=== PATIENT | male | born 1975 | race Caucasian/White ===

== ENCOUNTER 2017-09-19 23:03 | Observation (INO) ==
[2017-09-20] MEDS ORDERED: Ketorolac 30 MG/ML VIAL IVP ONE (00:25)
[2017-09-20] MEDS ORDERED: 0.9 % Sodium Chloride 1,000 ML IVC ONE ×2 (00:25→02:01)
[2017-09-20] MEDS ORDERED: *HR* FentaNYL (PF) 100 MCG/2 ML VIAL IVP ONE ×2 (00:25→02:01)
[2017-09-20 00:52] LABS: Basophils % 0.4 %; Eosinophils # 0.4 K/mcL (0.0-0.6); Eosinophils % 3.6 %; Hematocrit 39.4 % (37.5-50.1); Hemoglobin 13.8 g/dL (12.9-16.9); Immature Granulocytes % 0.5 % (0-4); Lymphocytes % 27.6 %; Mean Corpuscular Hemoglobin 30.5 pg (28.0-33.3); Mean Corpuscular Volume 87.2 fL (83.0-100.0); Mean Platelet Volume 9.2 fL (9.4-12.4); Monocytes # 1.1 K/mcL (0.0-1.3); Monocytes % 9.8 %; Neutrophils # 6.4 K/mcL (1.6-8.9); Platelet Count 273 K/mcL (140-400); Red Blood Count 4.52 M/mcL (4.19-5.50); Red Cell Distribution Width 13.8 % (11.5-14.5); Segmented Neutrophils % 58.1 %
[2017-09-20 01:11] LABS: BUN/Creatinine Ratio 24 (6-26); Blood Urea Nitrogen 35 mg/dL (6-20); Calcium 9.6 mg/dL (8.6-10.3); Carbon Dioxide 19 mEq/L (23-29); Chloride 109 mEq/L (98-107); Creatine Kinase 1414 Units/L (30-223); Glucose 133 mg/dL (70-105); Osmolality,Calculated 302 (280-300); Potassium 3.8 mEq/L (3.5-5.1); Sodium 141 mEq/L (136-145); eGFR For African Americans > 60 (> 60); eGFR For Non-African Americans 53 (> 60)
[2017-09-20 02:03] LABS: Bilirubin,Urine Negative (Negative); Blood,Urine Negative (Negative); Clarity,Urine Clear (Clear); Color,Urine Yellow (Yellow); Glucose,Urine (UA) Normal (Normal); Ketones,Urine Negative (Negative); Leukocyte Esterase,Urine Negative (Negative); Nitrite,Urine Negative (Negative); Protein,Urine Trace mg/dL (Neg-Trace); Specific Gravity,Urine > 1.030 (1.010-1.025); Urobilinogen,Urine Normal (Normal)
[2017-09-20 02:06] LABS: Squamous Epithelial Cell,Urine Many per lpf (None-Few); WBC,Urine 15-30 per hpf (0-3)
[2017-09-20 02:18] LABS: Bacteria,Urine Few per hpf (None-Few); Hyaline Casts,Urine Moderate per lpf (None-Few); Mucus,Urine Moderate (Few)
[2017-09-20 02:37] LABS: Amphetamine Screen,Urine Positive ng/mL (Cutoff=1000); Barbiturate Screen,Urine Negative ng/mL (Cutoff=200); Benzodiazepines Screen,Urine Negative ng/mL (Cutoff=200); Cannabinoid Screen,Urine Positive ng/mL (Cutoff = 50); Cocaine Screen,Urine Negative ng/mL (Cutoff= 300); Opiate Screen,Urine Positive ng/mL (Cutoff=300); Phencyclidine Screen,Urine Negative ng/mL (Cutoff=25)
--- NOTE | 2017-09-20 03:16 | Emergency Department Note ---
Disposition Clinical Impression: Left leg pain, Polysubstance abuse Rhabdomyolysis Qualifiers: Rhabdomyolysis type: non-traumatic Qualified Code(s): M62.82 - Rhabdomyolysis Disposition: Admitted As Inpatient Condition: Fair Referrals: NONE,PCP [Primary Care Provider] - Forms: ED Satisfaction Letter Time of Disposition: 03:16 Extremity Problem HPI - General Chief complaint: ED Extremity Problem,Nontraumatic Stated complaint: Left leg pain Time Seen by Provider: 09/19/17 23:30 Source: patient Mode of arrival: private vehicle Limitations: no limitations Nursing Notes Reviewed: Yes Vital Signs Reviewed: Yes - History of Present Illness Pt Subjective Complaint: extremity pain Onset (ago): week(s) (About 4 weeks) Consistency: constant Injury Location: left, lower extremity Pain Scale: 7 Quality: aching Radiation: proximal Improves with: other (Slight improvement with sitting upright and flexing left leg at the hip.) Worsens with: range of motion, walking Associated symptoms: Reports: denies other symptoms. Denies: fever Context: other (Patient states that he was in [facility] a month ago when he laid on the concrete floor for a while and that is when his leg started bothering him. He just got a couple of days ago so they following up at [facility] for leg discomfort and they were told to come here to the emergency department for further evaluation. That was this afternoon. The show up around midnight) - Related Data Home Medications Medication Instructions Recorded Confirmed Lisinopril 10 mg PO DAILY 04/28/15 05/11/15 Previous Rx's Medication Instructions Recorded Clindamycin HCl [Cleocin HCl] 300 mg PO QID #40 cap 05/11/15 Oxycodone HCl/Acetaminophen 1 each PO Q4H #16 tablet 05/11/15 [Percocet 5-325 mg Tablet] Cyclobenzaprine [Flexeril] 10 mg PO TID PRN #9 tablet 08/14/15 predniSONE [Prednisone] 20 mg PO BID #8 tablet 08/14/15 HYDROcodone/Acet 5/325 mg [[place] 1 tab PO Q6H PRN #5 tab 01/12/17 5-325 mg] Ibuprofen [Motrin] 600 mg PO Q8HR PRN #20 tab 09/10/17 Allergies Allergy/AdvReac Type Severity Reaction Status Date / Time No Known Allergies Allergy Verified 04/11/15 10:19 All systems ED: reviewed and negative except as stated. Constitutional: Denies: fever, chills ENT ED: Denies: ear pain, throat pain, congestion Cardiovascular: Denies: chest pain, palpitations Respiratory: Denies: cough, dyspnea Gastrointestinal: Denies: abdominal pain, nausea, vomiting Genitourinary: Denies: urgency, dysuria, frequency Musculoskeletal: Reports: back pain (The patient has chronic back pain and is no worse than usual) Integumentary: Denies: rash Neurological: Denies: numbness Past Medical History - Past Medical History Attestation: Yes The following information was validated with the patient. Source: patient, nursing notes reviewed Medical history: Reports: hypertension Surgical history: Reports: other (Laminectomy) Psychiatric history: Reports: no psych history - Social History Smoking Status: Current every day smoker Smokeless Tobacco Status: No Alcohol use: Reports: rarely Drug use: Reports: none Physical Exam - General Limitations: no limitations General appearance: alert, other (Patient struggling to find a comfortable position. He is pulling his left leg up towards his chest while sitting up.) - Head Head exam: atraumatic, normocephalic, normal inspection - Eye Eye exam: Present: normal appearance, PERRL, EOMI. Absent: scleral icterus, conjunctival injection - ENT ENT exam: normal exam, normal oropharynx, mucous membranes moist, normal external ear exam - Neck Neck exam: Present: normal inspection, full ROM - Chest Chest inspection: Present: normal inspection, symmetric chest wall rise. Absent : tenderness - Respiratory Respiratory exam: Present: normal lung sounds bilaterally. Absent: respiratory distress, wheezes - Cardiovascular Cardiovascular exam: Present: regular rate, normal rhythm, normal heart sounds - Abdominal Exam Abdominal exam: Present: soft, Non-Tender, normal bowel sounds - Extremities Exam Extremities exam: Present: normal inspection, other (I did not find any area of tenderness on the leg. There is no pain on extension of any of the muscle groups of the upper or lower leg. Distal neurologic and vascular examination to the left lower extremity is normal. No rash was seen.) - Back Exam Back exam: Present: normal inspection. Absent: tenderness - Neurological Exam Neurological exam: Present: alert, oriented X3. Absent: motor sensory deficit - Psychiatric Psychiatric exam: Present: normal affect, normal mood - Skin Skin exam: Present: warm, dry. Absent: rash Course Course Narrative: Patient presents with pain to the leg. He weighs acting to me sounds like its more of a sciatica or neurologic cause of pain. I am not finding indications that its muscular or bony. Arterial vascular examination unremarkable. Patient has had prior back problems and previous back surgery. There is no clinical indications of deep vein thrombosis. Patient does have history of substance abuse and that does make me concerned for infection of the spine that could be leading to sciatica. Patient could not hold still for CT scan of the lumbar spine. I think he would benefit from MRI of this lumbar spine. Lab work did show an elevation of CPK of 1500 which is concerning for rhabdomyolysis. His urine dressing is also positive for amphetamines. This makes me wonder if the whole issue is not related to the substances. At this point he treatment the hospital because we have treated the rhabdo my lysis and need to make sure there is no more significant life-threatening issue such as a spine compression issue. However at this point his neurologic examination shows no deficits whatsoever. I did speak to the hospitalist and he is accepted patient for admission to the hospital. Patient's discomfort has improved after a couple doses of fentanyl. Vital Signs Temperature 98.2 F 09/19/17 23:16 Pulse Rate 110 09/19/17 23:16 Respiratory Rate 20 09/19/17 23:16 Blood Pressure 157/117 09/19/17 23:16 O2 Sat by Pulse Oximetry 96 09/19/17 23:16 Temperature 98.2 F 09/19/17 23:37 Pulse Rate 83 09/20/17 03:04 Respiratory Rate 20 09/20/17 03:04 Blood Pressure 138/109 09/20/17 03:04 O2 Sat by Pulse Oximetry 97 09/20/17 03:04 Oxygen Delivery Oxygen Delivery Room Air Extremity Problem, Nontraumati - Lab Data Lab results reviewed: Yes I reviewed the patient's lab results. Result diagrams: 09/20/17 00:38 09/20/17 00:38 Lab Results 09/20/17 09/20/17 09/20/17 Range/Units 00:38 00:38 00:38 WBC 11.0 (4.3-11.1) K/mcL RBC 4.52 (4.19-5.50) M/mcL Hgb 13.8 (12.9-16.9) g/dL Hct 39.4 (37.5-50.1) % MCV 87.2 (83.0-100.0) fL MCH 30.5 (28.0-33.3) pg MCHC 35.0 (31.6-35.5) g/dL RDW 13.8 (11.5-14.5) % Plt Count 273 (140-400) K/mcL MPV 9.2 L (9.4-12.4) fL Immature Gran % 0.5 (0-4) % Seg Neutrophils % 58.1 % Lymphocytes % 27.6 % Monocytes % 9.8 % Eosinophils % 3.6 % Basophils % 0.4 % Neutrophils # 6.4 (1.6-8.9) K/mcL Lymphocytes # 3.0 (0.6-4.6) K/mcL Monocytes # 1.1 (0.0-1.3) K/mcL Eosinophils # 0.4 (0.0-0.6) K/mcL Basophils # 0.0 (0.0-0.2) K/mcL Sodium 141 (136-145) mEq/L Potassium 3.8 (3.5-5.1) mEq/L Chloride 109 H (98-107) mEq/L Carbon Dioxide 19 L (23-29) mEq/L BUN 35 H (6-20) mg/dL Creatinine 1.46 H (0.70-1.30) mg/dL Est GFR ( Amer) > 60 (> 60) Est GFR (Non-Af Amer) 53 L (> 60) BUN/Creatinine Ratio 24 (6-26) Glucose 133 H (70-105) mg/dL Calculated Osmolality 302 H (280-300) Lactic Acid 1.8 (0.5-2.2) mmol/L Calcium 9.6 (8.6-10.3) mg/dL Creatine Kinase 1414 H (30-223) Units/L Urine Color (Yellow) Urine Clarity (Clear) Urine pH (5.0-8.0) pH Units Ur Specific [place] (1.010-1.025) Urine Protein (Neg-Trace) mg/dL Urine Glucose (UA) (Normal) mg/dL Urine Ketones (Negative) mg/dL Urine Blood (Negative) Urine Nitrite (Negative) Urine Bilirubin (Negative) Urine Urobilinogen (Normal) mg/dL Ur Leukocyte Esterase (Negative) Urine Microscopic RBC (0-3) per hpf Urine Microscopic WBC (0-3) per hpf Ur Squamous Epith Cells (None-Few) per lpf Urine Bacteria (None-Few) per hpf Hyaline Casts (None-Few) per lpf Urine Mucus (Few) Ur Culture Indicated? (NO) Urine Opiates Screen (Uefmxv=907) ng/mL Ur Barbiturates Screen (Sddegu=603) ng/mL Ur Phencyclidine Scrn (Cutoff=25) ng/mL Ur Amphetamines Screen (Zuronb=3355) ng/mL U Benzodiazepines Scrn (Ybtnyh=468) ng/mL Urine Cocaine Screen (Cutoff= 300) ng/mL U Marijuana (THC) Screen (Cutoff = 50) ng/mL Ur Drug Screen Interp 09/20/17 09/20/17 Range/Units 01:52 01:52 WBC (4.3-11.1) K/mcL RBC (4.19-5.50) M/mcL Hgb (12.9-16.9) g/dL Hct (37.5-50.1) % MCV (83.0-100.0) fL MCH (28.0-33.3) pg MCHC (31.6-35.5) g/dL RDW (11.5-14.5) % Plt Count (140-400) K/mcL MPV (9.4-12.4) fL Immature Gran % (0-4) % Seg Neutrophils % % Lymphocytes % % Monocytes % % Eosinophils % % Basophils % % Neutrophils # (1.6-8.9) K/mcL Lymphocytes # (0.6-4.6) K/mcL Monocytes # (0.0-1.3) K/mcL Eosinophils # (0.0-0.6) K/mcL Basophils # (0.0-0.2) K/mcL Sodium (136-145) mEq/L Potassium (3.5-5.1) mEq/L Chloride (98-107) mEq/L Carbon Dioxide (23-29) mEq/L BUN (6-20) mg/dL Creatinine (0.70-1.30) mg/dL Est GFR ( Amer) (> 60) Est GFR (Non-Af Amer) (> 60) BUN/Creatinine Ratio (6-26) Glucose (70-105) mg/dL Calculated Osmolality (280-300) Lactic Acid (0.5-2.2) mmol/L Calcium (8.6-10.3) mg/dL Creatine Kinase (30-223) Units/L Urine Color Yellow (Yellow) Urine Clarity Clear (Clear) Urine pH 5.0 (5.0-8.0) pH Units Ur Specific [place] > 1.030 H (1.010-1.025) Urine Protein Trace (Neg-Trace) mg/dL Urine Glucose (UA) Normal (Normal) mg/dL Urine Ketones Negative (Negative) mg/dL Urine Blood Negative (Negative) Urine Nitrite Negative (Negative) Urine Bilirubin Negative (Negative) Urine Urobilinogen Normal (Normal) mg/dL Ur Leukocyte Esterase Negative (Negative) Urine Microscopic RBC 5-15 H (0-3) per hpf Urine Microscopic WBC 15-30 H (0-3) per hpf Ur Squamous Epith Cells Many H (None-Few) per lpf Urine Bacteria Few (None-Few) per hpf Hyaline Casts Moderate H (None-Few) per lpf Urine Mucus Moderate H (Few) Ur Culture Indicated? NO (NO) Urine Opiates Screen Positive H (Sidxzm=928) ng/mL Ur Barbiturates Screen Negative (Fwfkxv=011) ng/mL Ur Phencyclidine Scrn Negative (Cutoff=25) ng/mL Ur Amphetamines Screen Positive H (Fxurfm=0632) ng/mL U Benzodiazepines Scrn Negative (Kqxfzg=651) ng/mL Urine Cocaine Screen Negative (Cutoff= 300) ng/mL U Marijuana (THC) Screen Positive H (Cutoff = 50) ng/mL Ur Drug Screen Interp See Below
[2017-09-20] MEDS ORDERED: *HR* LORazepam 2 MG/ML VIAL IVP ONE (03:18)
[2017-09-20] MEDS ORDERED: *HR* LORazepam 2 MG/ML VIAL ONE (03:50)
[2017-09-20] MEDS ORDERED: *HR* OxyCODONE Immed Rel 5 MG TABLET PO PRN (05:13)
[2017-09-20] MEDS ORDERED: Naloxone 0.4 MG/ML INJ IVP PRN (05:13)
[2017-09-20] MEDS ORDERED: 0.9 % Sodium Chloride 1,000 ML IVC SCH (05:15)
--- NOTE | 2017-09-20 05:29 | Internal Med History&Physical ---
Date of Encounter: 09/20/17 Time of Encounter: 04:30 Internal Medicine - H&P: HPI Chief complaint: Left leg pain Admitted From: Home Plans for Post Hospital Care: Home History of present illness: Mr. Bowling is a 42 year old male Patient presented with left lower leg pain that started when [facility] weeks [facility]. He states that he tripped over someone that was laying on the floor and fell into a toilet. He says that he was not taken to medical at that time, and had to wait until he was released this passed Monday before he went to the hospital. He also has a ankle monitor and had to get clearance to come to the ER, thus that is why he waited so long to be seen. The pain is focused at his calf, and radiates up his leg to his hip. He has some tingling sensation in his foot, but his entire leg hurts. The pain has been increasing, nothing seems to make it better, certain positions help, but nothing for very long. His girlfriend gave him some percocets that she had laying around and that did not help. In the ER patient's urine was positive for opiates, amphetamines and marijuana. Patient denies doing meth, but did state that he has smoked marijuana and took the percocets over the weekend. His pain was severe enough that he would not hold still for a CT that was ordered of the lumbar spine. His CK was found to be 1414, with creatinine of 1.46. 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 He has not had kidney issues before. He was admitted for management of his rhabdomyolysis and leg pain. Past Med Surg Social Fam HX - Past Medical History Medical history: hypertension Additional medical history: lumbar stenosis. htn. tobacco abuse. ONE KIDNEY. BACK PAIN. LUMBAR STENOSIS Psychiatric history: no psych history - Past Surgical History Surgical History: other Additional surgical history: back surgery, shoulder surgery - Social History Smoking Status: Current every day smoker Packs per day: 0.5 Smokeless Tobacco Status: No Alcohol use: rarely Drug use: marijuana - Family History Father Hx Family Cardiac Disorders: Yes (HTN) Hx Family Endocrine Disorder: Yes (DM) Internal Medicine - H&P: Meds Lisinopril 10 mg PO DAILY 04/28/15 [History] Clindamycin HCl [Cleocin HCl] 300 mg PO QID #40 cap 05/11/15 [Rx] Oxycodone HCl/Acetaminophen [Percocet 5-325 mg Tablet] 1 each PO Q4H #16 tablet 05/11/15 [Rx] Cyclobenzaprine [Flexeril] 10 mg PO TID PRN #9 tablet 08/14/15 [Rx] predniSONE [Prednisone] 20 mg PO BID #8 tablet 08/14/15 [Rx] HYDROcodone/Acet 5/325 mg [[place] 5-325 mg] 1 tab PO Q6H PRN #5 tab 01/12/17 [Rx] Ibuprofen [Motrin] 600 mg PO Q8HR PRN #20 tab 09/10/17 [Rx] 3 Allergy/AdvReac Type Severity Reaction Status Date / Time No Known Allergies Allergy Verified 04/11/15 10:19 All Systems PM: A 10-system review of systems was performed and is negative for pertinent findings except as documented above in the HPI. - Constitutional Vitals: Temp Pulse Resp BP Pulse Ox 98.2 F 57 14 187/123 99 09/20/17 04:41 09/20/17 04:41 09/20/17 04:41 09/20/17 04:41 09/20/17 04:41 General appearance: Present: cooperative, A&O X 3, severe distress - Head Head exam: Present: normal inspection - Respiratory Respiratory exam: Present: CTAB. Absent: rales, respiratory distress, wheezes - Cardiovascular Cardiovascular exam: Present: RRR. Absent: diastolic murmur, systolic murmur - GI/Abdominal GI/Abdominal exam: Present: normal bowel sounds. Absent: distended, guarding, tenderness - Extremities Exam Extremities exam: Present: tenderness, warm, radial pulses palpable and symmetrical Additional comments: Tenderness of left leg, maximum intensity over left calf. Moderate tenderness over upper leg and foot. Difficult to examine due to pain. Right leg did not show any tenderness over calf, foot or upper leg. Radial pulses felt bilaterally Extremities warm, no rashes noted. - Back Exam Back exam: Absent: CVA tenderness (L), CVA tenderness (R), paraspinal tenderness , tenderness, vertebral tenderness - Neurological Exam Neurological exam: Present: strengths equal and symetr throughout. Absent: motor sensory deficit, facial droop, speech deficit Additional comments: Patient moving a lot during exam due to pain in leg. - Skin Skin exam: Present: dry, normal color, warm. Absent: rash Internal Med - H&P Results - Labs CBC & Chem 7: 09/20/17 06:24 09/20/17 06:24 - Assessment and plan (1) Left leg pain Current Visit: Yes Status: Acute Assessment and plan: Unknown cause, tender with palpation, no swelling. Difficult to examine due to tenderness. Does have pain with dorsi-flexion and extension of left foot. Would like to check for clot as pain is localized over the left calf. Will try and control pain with oral pain meds. Patient denies illicit drug use. Fentanyl and ketoralac minimally effective in ER. Will try 1 dose of oxycodone 10mg. Will also order venous doppler to evaluate for possible clot. Patient also stated that he had shortness of breath that started yesterday. Can not do CT angio at this time due to acute kidney injury, and patient only has one kidney due to donating his other one to his father. Will see if we can control pain, get the venous scan and give fluids for his rhabdo. If patient can keep still, will move to imaging studies. Patient is an AMA risk as he does not want to stay in the hospital despite his pain and discomfort. (2) Rhabdomyolysis Current Visit: Yes Status: Acute Assessment and plan: As stated above, patient has a CK of 1414. Could be related to the injury in the senior living, would like to evaluate further but patient's pain makes imaging difficult as he can not hold still. Obtain CT of spine if patient's pain controlled. IV fluids boluses given in the ER, will continue to monitor CK and kidney function Qualifiers: Rhabdomyolysis type: non-traumatic Qualified Code(s): M62.82 - Rhabdomyolysis (3) Shortness of breath Current Visit: Yes Status: Acute Assessment and plan: Now improved, saturating at 97% on room air. Would consider CT angio to rule out PE Get venous doppler this morning to check for DVT. (4) Polysubstance abuse Current Visit: Yes Status: Acute Assessment and plan: Patient denies meth use, but recently used percocet and marijuana in hopes it would improve the pain. Caution with giving narcotic pain medication Will try 1 time dose of oxycodone 10mg to help control pain. (5) Hypertension Current Visit: Yes Status: Acute Assessment and plan: Likely exacerbated by pain, his blood pressure has been elevated since he first presented in the ER. Oxycodone 10mg for pain control IV labetalol and hydralzine ordered PRN Continue to monitor. Qualifiers: Qualified Code(s): I10 - Essential (primary) hypertension (6) Acute kidney injury Current Visit: Yes Status: Acute Assessment and plan: Likely secondary to the rhabdomyolysis, CK elevated as above. IV fluid boluses, continue to monitor Caution with contrast imaging studies until improved renal function as patient only has 1 kidney. - Time Spent With Patient Total time spent is greater than 50% in coordination of care (as documented) at patient's floor/unit and/or counseling patient: Greater than 35 minutes
[2017-09-20] MEDS ORDERED: *HR* Labetalol 20 MG/4 ML SYRINGE IVP ONE (05:38)
[2017-09-20 06:41] LABS: Hematocrit 36.8 % (37.5-50.1); Hemoglobin 12.8 g/dL (12.9-16.9); Mean Corpuscular HGB Conc 34.8 g/dL (31.6-35.5); Mean Corpuscular Hemoglobin 30.8 pg (28.0-33.3); Mean Corpuscular Volume 88.7 fL (83.0-100.0); Mean Platelet Volume 9.1 fL (9.4-12.4); Platelet Count 245 K/mcL (140-400); Red Blood Count 4.15 M/mcL (4.19-5.50); Red Cell Distribution Width 13.7 % (11.5-14.5)
[2017-09-20 07:03] LABS: BUN/Creatinine Ratio 25 (6-26); Blood Urea Nitrogen 32 mg/dL (6-20); Calcium 8.6 mg/dL (8.6-10.3); Carbon Dioxide 20 mEq/L (23-29); Chloride 111 mEq/L (98-107); Glucose 122 mg/dL (70-105); Osmolality,Calculated 294 (280-300); Potassium 3.8 mEq/L (3.5-5.1); Sodium 138 mEq/L (136-145); eGFR For African Americans > 60 (> 60); eGFR For Non-African Americans > 60 (> 60)
[2017-09-20 07:16] VITALS: BP 142/97
[2017-09-20] MEDS ORDERED: *HR* Heparin 5,000 UNIT/ML VIAL SQ SCH (08:00)
--- NOTE | 2017-09-20 09:20 | Event Note ---
Date of Encounter: 09/20/17 Time of Encounter: 09:15 I was called to this patients room because he was requesting to leave AMA. I was unable to assess him as he was agitated and refusing. He was offered to stay for additional workup and evaluation. I explained to him that it appears he has rhabdomyolysis. Also, there is concern for possible DVT due to left lower extremity tenderness and pain. I explained that the patient would benefit from additional workup and evaluation. Furthermore, I explained that if he did not receive additional workup and evaluation. His condition continued to worsen. Explained if he were to have rhabdomyolysis his kidney function continued to worsen and lead to kidney failure. This would be particularly gram 2 this patient as he does only currently have one kidney. Additionally, I informed him that I am concerned that there is a possible DVT in the left lower extremity. I explained that the DVT can cause ischemia further complicating things and leading to potential limb loss sepsis and/or . I explained that the potential renal failure could also lead to . Patient wishes to continue to sign AGAINST MEDICAL ADVICE. He was instructed to return to the ED should his symptoms persist or worsen. Verbalized understanding denies any further questions at this time. Patient did sign out AGAINST MEDICAL ADVICE
== END 2017-09-20 08:55 | disposition left against medical advice (07) ==
LOC: EMEROO 23:03 → 2ANU 23:03 → 3BNU 09-20 04:00
PROVIDERS: ADMIT Pediatrics; ATTEND Pediatrics

== ENCOUNTER 2017-09-21 01:08 | Observation (INO) ==
[2017-09-21] MEDS ORDERED: Nicotine 21 MG PATCH.TD24 TD SCH (01:37)
[2017-09-21] MEDS: 0.9 % Sodium Chloride 1,000 ML IVC SCH ×2 (04:15→05:32)
[2017-09-21] MEDS ORDERED: Naloxone 0.4 MG/ML INJ IVP PRN (06:18)
[2017-09-21] MEDS ORDERED: 0.9 % Sodium Chloride 1,000 ML IVC ONE (06:21)
--- NOTE | 2017-09-21 06:31 | Internal Med History&Physical ---
Date of Encounter: 09/21/17 Time of Encounter: 02:00 Internal Medicine - H&P: HPI Chief complaint: Rhabdomyolysis Admitted From: Hospital to Hospital Transfer Plans for Post Hospital Care: Home History of present illness: Mr. Bowling is a 42 year old male Patient admitted yesterday for her pain and left leg rhabdomyolysis, but left AMA early yesterday morning. His significant other states that he left because he wanted to smoke a cigarette. He then presented to the emergency room here later in the day, but left without being seen. He returned to the ER at [facility] because he still had left leg pain. He was then transferred back to [place] for further management. Please see yesterday's H&P for further details. Currently patient's leg pain significantly improved from yesterday when I admitted him. He was sleeping and difficult to awaken because he was in a very deep sleep. He was arousable however, and states that he is feeling much better and has not been able to sleep in days due to this pain. But now he is sleeping again. He denies nausea, vomiting, diarrhea, constipation, and abdominal pain. He denies shortness of breath as well as chest pain. Past Med Surg Social Fam HX - Past Medical History Medical history: hypertension, other Additional medical history: lumbar stenosis. ONE KIDNEY. BACK PAIN Psychiatric history: anxiety, depression - Past Surgical History Surgical History: other Additional surgical history: back surgery, shoulder surgery - Social History Smoking Status: Current every day smoker Smokeless Tobacco Status: No Alcohol use: none Drug use: marijuana - Family History Father Hx Family Cardiac Disorders: Yes (HTN) Hx Family Endocrine Disorder: Yes (DM) Internal Medicine - H&P: Meds No Known Home Drugs 09/20/17 [History] 3 Allergy/AdvReac Type Severity Reaction Status Date / Time No Known Allergies Allergy Verified 09/20/17 20:47 All Systems PM: A 10-system review of systems was performed and is negative for pertinent findings except as documented above in the HPI. - Constitutional Vitals: Temp Pulse Resp BP Pulse Ox 98.3 F 72 14 141/85 98 09/21/17 04:15 09/21/17 04:15 09/21/17 04:15 09/21/17 04:15 09/21/17 04:15 General appearance: Present: pleasant, no acute distress Exam: drowsy - Head Head exam: Present: normal inspection - Eye Eye exam: Present: EOMI - Respiratory Respiratory exam: Present: CTAB. Absent: respiratory distress, wheezes - Cardiovascular Cardiovascular exam: Present: RRR. Absent: diastolic murmur, systolic murmur - GI/Abdominal GI/Abdominal exam: Present: normal bowel sounds. Absent: guarding, tenderness - Extremities Exam Extremities exam: Present: warm, radial pulses palpable and symmetrical. Absent : calf tenderness, pedal edema, tenderness Additional comments: No pain with palpation over the lower extremities - Neurological Exam Neurological exam: Absent: facial droop, speech deficit - Skin Skin exam: Present: dry, normal color, warm Internal Med - H&P Results - Labs CBC & Chem 7: 09/21/17 06:18 - Assessment and plan (1) Rhabdomyolysis Current Visit: No Status: Acute Assessment and plan: Patient CK was 1338 at the [facility]. This improved from previous of 1573. Patient's leg pain much improved from previous admission yesterday. Patient did not get any of the diagnostic imaging studies prior to leaving AMA. Continue fluid boluses Continue to monitor Left leg ultrasound today Consider spine imaging as ordered in previous admission Qualifiers: Rhabdomyolysis type: non-traumatic Qualified Code(s): M62.82 - Rhabdomyolysis (2) Left leg pain Current Visit: No Status: Acute Assessment and plan: Improved from previous admission yesterday, patient was able to sleep for the first time in many days. No pain on exam with palpation. Continue to monitor Treating for rhabdomyolysis as above. (3) Nicotine abuse Current Visit: Yes Status: Acute Assessment and plan: Patient left AMA yesterday because he wanted a cigarette. He states now that he will not leave her cigarettes, and agreed to a nicotine patch. Nicotine patch for cravings. - Time Spent With Patient Total time spent is greater than 50% in coordination of care (as documented) at patient's floor/unit and/or counseling patient: Greater than 35 minutes
[2017-09-21 06:57] LABS: Hematocrit 37.4 % (37.5-50.1); Hemoglobin 12.6 g/dL (12.9-16.9); Mean Corpuscular HGB Conc 33.7 g/dL (31.6-35.5); Mean Corpuscular Hemoglobin 30.3 pg (28.0-33.3); Mean Corpuscular Volume 89.9 fL (83.0-100.0); Mean Platelet Volume 9.2 fL (9.4-12.4); Platelet Count 229 K/mcL (140-400); Red Blood Count 4.16 M/mcL (4.19-5.50); Red Cell Distribution Width 13.4 % (11.5-14.5)
[2017-09-21 07:20] LABS: BUN/Creatinine Ratio 24 (6-26); Blood Urea Nitrogen 20 mg/dL (6-20); Calcium 8.5 mg/dL (8.6-10.3); Carbon Dioxide 18 mEq/L (23-29); Chloride 112 mEq/L (98-107); Glucose 182 mg/dL (70-105); Osmolality,Calculated 291 (280-300); Potassium 4.1 mEq/L (3.5-5.1); Sodium 137 mEq/L (136-145); eGFR For African Americans > 60 (> 60); eGFR For Non-African Americans > 60 (> 60)
[2017-09-21 08:15] VITALS: BP 141/93
--- NOTE | 2017-09-21 13:35 | Discharge Summary ---
- NOTES TO OUTPATIENT PROVIDER Notes to Outpatient Provider: left AMA Orders not resulted at time of discharge: Pending orders 09/21/17 06:22 Venous Ultrasound [EV venous imaging LE LT] Routine Date of Encounter: 09/21/17 Time of Encounter: 13:33 - Discharge Diagnosis (1) Rhabdomyolysis Priority: Primary Status: Acute Qualifiers: Rhabdomyolysis type: non-traumatic Qualified Code(s): M62.82 - Rhabdomyolysis (2) Left leg pain Priority: Secondary Status: Acute (3) Nicotine abuse Priority: Secondary Status: Acute Hospital course: Mr. Bowling is a 42 year old male presented with chief complaint of rhabdomyolysis. Patient was admitted 2 days ago for left leg rhabdomyolysis and left AMA. He then returned to the emergency room after leaving AMA but the left again without being seen. He then went to [place] emergency room because of the left leg pain and then was transferred to [place]. Patient was admitted for rhabdomyolysis and was started on IV fluids. This morning when examining the patiente requested Percocets for his left lower extremity pain however patient had positive urine drug screen for opiates, amphetamines, marijuana. He reports he buys Percocets off the streets. When he was told he was not to be given any opiate pain medication he became angry and agitated along with his spouse. And according to them, because of this they left AGAINST MEDICAL ADVICE again. Discharge discussed with: patient, family Time spent discussing smoking cessation with patient: more than 10 minutes - Time Spent with Patient Total time spent providing and/or coordinating discharge services: - Discharge Medications Home Medications: No Known Home Drugs 09/20/17 [History] Allergies/Adverse Reactions: 3 Allergy/AdvReac Type Severity Reaction Status Date / Time No Known Allergies Allergy Verified 09/21/17 08:55 Date of admission: 09/21/17 01:08 Primary care physician: PCP NONE Discharging clinician: Lei Lancaster Anticipated date of discharge: 09/21/17 - Constitutional Vitals: Temp Pulse Resp BP Pulse Ox 97.6 F 82 16 141/93 98 09/21/17 08:13 09/21/17 08:13 09/21/17 08:13 09/21/17 08:13 09/21/17 08:13 General appearance: Present: pleasant, no acute distress - Other Additional findings: General: agitated anxious HEENT: Head atraumatic, normocephalic, EOMI, PERRL, neck nontender to palpation , absent lymphadenopathy, Moist Mucous Membranes, Heart: Regular rate and rhythm with no murmur Lungs: Clear to auscultation bilaterally Abdomen: Soft nontender, nondistended positive bowel sounds Skin: Large purpuric lesion on left breast Extremities: Absent pedal edema, pain with palpation of left calf Neuro: Cranial nerves II through XII intact, UE and LE sensation equal bilaterally, UE and LEstrength 5/5, alert oriented 3, Heel to riddle intact, finger to nose intact, Gait intact, rhombergs sign negative, b/l plantar reflexes downwards Vascular: Pedal and radial pulses 2 out of 4 - Patient Status Disposition: Left Against Medical Advice Functional capacity at discharge: independent ambulation Overall status at discharge: patient is not back to baseline - Discharge Instructions Follow Up With: NONE,PCP [Primary Care Provider] - - Diet and Activity Activity: increase activity as tolerated Diet: advance to your usual diet
== END 2017-09-21 10:12 | disposition left against medical advice (07) ==
LOC: 3ANU → SUATTDRO 01:08
PROVIDERS: ADMIT Family Medicine; ATTEND Internal Medicine